=== PATIENT | female | born 1945 | race Caucasian/White ===

== ENCOUNTER → 2016-10-11 | Outpatient (CLI) | payer MEDICARE, BC | LOC: MC.RAD 10:00 | DX: Z12.31 Encounter for screening mammogram for malignant neoplasm of breast (principal) ==

== ENCOUNTER → 2018-11-06 | Outpatient (CLI) | payer MEDICARE, BC | LOC: MC.RAD 14:09 | DX: Z12.31 Encounter for screening mammogram for malignant neoplasm of breast (principal) ==

== ENCOUNTER → 2019-11-27 | Outpatient (CLI) | payer MEDICARE, BC | LOC: MC.RAD 10:00 | DX: Z12.31 Encounter for screening mammogram for malignant neoplasm of breast (principal); R92.1 Mammographic calcification found on diagnostic imaging of breast; N64.89 Other specified disorders of breast ==

== ENCOUNTER → 2019-11-29 | Outpatient (CLI) | payer MEDICARE, BC | LOC: MC.RAD 06:56 | DX: R92.0 Mammographic microcalcification found on diagnostic imaging of breast (principal) ==

== ENCOUNTER → 2019-12-11 | Outpatient (CLI) | payer MEDICARE, BC | LOC: MC.RAD 08:17 | DX: R92.0 Mammographic microcalcification found on diagnostic imaging of breast (principal); Z98.82 Breast implant status ==

== ENCOUNTER 2020-12-14 14:15 | Outpatient (RCR) | payer MEDICARE, BC | END 2021-01-11 | disposition home or self-care (01) | LOC: WSC | DX: M48.061 Spinal stenosis, lumbar region without neurogenic claudication (principal); M48.07 Spinal stenosis, lumbosacral region; M43.15 Spondylolisthesis, thoracolumbar region; M43.16 Spondylolisthesis, lumbar region; M51.24 Other intervertebral disc displacement, thoracic region ==

== ENCOUNTER → 2021-01-29 | Outpatient (CLI) | payer OTHER | LOC: COL.RAD 13:53 | DX: M48.061 Spinal stenosis, lumbar region without neurogenic claudication (principal); M51.15 Intervertebral disc disorders with radiculopathy, thoracolumbar region ==

== ENCOUNTER 2021-02-10 15:00 | Outpatient (RCR) | payer OTHER, MEDICARE, BC | END 2021-02-12 | disposition home or self-care (01) | LOC: WSPT | DX: M54.42 Lumbago with sciatica, left side (principal) ==

== ENCOUNTER → 2021-09-15 | Outpatient (CLI) | payer MEDICARE, BC | LOC: COL.RAD 11:33 | DX: N39.41 Urge incontinence (principal) ==